=== PATIENT | male | born 1990 | race Hispanic/Latino ===

== ENCOUNTER 2022-08-21 13:42 | Emergency (ER) | payer SELFPAY ==
[~2022-08-21] VITALS: Ht 167.6 cm; Wt 72.0 kg
[2022-08-21 13:51] VITALS: BP 149/97
[2022-08-21 14:00] VITALS: BP 126/86
[2022-08-21 14:31] VITALS: BP 129/97
[2022-08-21 15:00] VITALS: BP 125/84
[2022-08-21 15:07] LABS: HEMATOCRIT 40.9 % (39.0-50.0); HEMOGLOBIN 14.3 g/dl (14.0-18.0); IMMATURE GRANULOCYTES 0.2 % (0.0-5.0); MEAN CELL VOLUME 88.9 fL CALC (80.0-100.0); MEAN CORPUSCULAR HGB 31.1 pG CALC (26.0-32.0); NEUT# 3.19 thou/uL (1.82-7.42); RED BLOOD COUNT 4.6 mill/uL (4.70-6.10); RED CELL DISTRI WIDTH 11.3 % (11.5-15.5)
[2022-08-21 15:12] LABS: ALBUMIN 4.7 g/dL (3.2-5.0); ALKALINE PHOSPHATASE 66 u/l (38-126); ANION GAP 13 (6-22 (CALC)); BILIRUBIN, TOTAL 1.3 mg/dL (0.0-1.4); BUN 9 mg/dL (9-20); BUN/CREATININE RATIO 9 (12-20 (CALC)); CARBON DIOXIDE 25 mmol/l (22-30); CHLORIDE 106 mmol/l (95-108); GFR FOR AFR.AMER. > 60 ML/MIN (>=60 (CALC)); GFR OTHER RACES > 60 ML/MIN (>=60 (CALC)); POTASSIUM 4.4 mmol/l (3.5-5.1); SGOT/AST 29 u/l (17-59); SODIUM 140 mmol/l (137-146); TOTAL PROTEIN 7.4 g/dL (6.3-8.2)
[2022-08-21] MEDS ORDERED: PROTONIX40 M2 PO (16:12)
[2022-08-21 16:46] VITALS: BP 125/84
== END 2022-08-21 16:46 | disposition home or self-care (01) | DRG 156 ==
LOC: ED 13:42
PROVIDERS: Nurse Practitioner
DX: R07.0 Pain in throat (principal); K21.9 Gastro-esophageal reflux disease without esophagitis
CPT/HCPCS: Q9967